=== PATIENT | female | born 1950 | race Caucasian/White ===

== ENCOUNTER 2017-07-31 11:24 | Outpatient (CLI) | payer MEDICARE, BC ==
[2017-07-31 18:26] LABS: BASOPHILS # (AUTO) 0.1 10^3/uL (0.0-0.1); BASOPHILS % (AUTO) 1.2 %; EOSINOPHILS # (AUTO) 0.2 10^3/uL (0.0-0.7); HCT - HEMATOCRIT 37.2 % (37.0-47.0); HGB - HEMOGLOBIN 12.4 g/dL (12.0-16.0); LYMPHOCYTES # (AUTO) 2.3 10^3/uL (1.5-3.5); LYMPHOCYTES % (AUTO) 31.1 %; MEAN CORPUSCULAR HEMOGLOBIN 31.5 pg (27.0-31.0); MEAN CORPUSCULAR HGB CONC 33.2 g/dL (32.0-36.0); MEAN CORPUSCULAR VOLUME 94.7 fL (81.0-99.0); MEAN PLATELET VOLUME 8.2 fL (7.9-10.8); MONOCYTES # (AUTO) 0.6 10^3/uL (0.0-1.0); MONOCYTES % (AUTO) 7.6 %; NEUTROPHILS # (AUTO) 4.4 10^3/uL (1.5-6.6); NEUTROPHILS % (AUTO) 58.1 %; RED BLOOD COUNT 3.93 10^6/uL (4.20-5.40); RED CELL DISTRIBUTION WIDTH 13.2 % (12.0-15.0); UNCORRECTED WHITE BLOOD COUNT 7.5 x10^3/uL; WHITE BLOOD COUNT 7.5 x10^3/uL (4.8-10.8)
[2017-07-31 18:52] LABS: ALBUMIN/GLOBULIN RATIO 1.3 (1.0-2.2); BILIRUBIN,TOTAL 0.6 mg/dL (0.2-1.0); BUN - BLOOD UREA NITROGEN 16 mg/dL (6-20); CALCIUM 9.5 mg/dL (8.5-10.3); CARBON DIOXIDE - CO2 30 mmol/L (21-32); CHLORIDE 99 mmol/L (101-111); CREATININE 0.7 mg/dL (0.4-1.0); GFR - MDRD 83 (>89); GLUCOSE 90 mg/dL (70-100); POTASSIUM 4.7 mmol/L (3.5-5.0); SODIUM 133 mmol/L (135-145); TOTAL PROTEIN 6.6 g/dL (6.7-8.2)
== END 2017-07-31 11:25 | disposition home or self-care (01) ==
LOC: LAB.F 11:24
PROVIDERS: ATTEND Internal Medicine Gastroenterology
DX: K51.90 Ulcerative colitis, unspecified, without complications (principal)
CPT/HCPCS: 36415; 80053; 85025; 85651; 86140

== ENCOUNTER 2017-08-15 09:02 | Outpatient (CLI) | payer MEDICARE, BC ==
[2017-08-15 18:16] LABS: CHOL/HDL RATIO 1.9 (<4.4); CHOLESTEROL 182 mg/dL; HDL CHOLESTEROL 97 mg/dL; LDL/HDL RATIO 0.8 (<4.4); TRIGLYCERIDES 42 mg/dL; VLDL CHOLESTEROL 8 mg/dL
== END 2017-08-15 09:03 | disposition home or self-care (01) ==
LOC: LAB.F 09:02
PROVIDERS: ATTEND Internal Medicine Gastroenterology
DX: K51.90 Ulcerative colitis, unspecified, without complications (principal); E78.89 Other lipoprotein metabolism disorders
CPT/HCPCS: 36415; 80061

== ENCOUNTER 2019-02-19 15:22 | Outpatient (CLI) | payer MEDICARE, BC ==
--- NOTE | 2019-02-20 08:06 | XRAY Report ---
Reason: MEDIAL MALLEOLUS PAIN X 2 MONTHS INCREASING Procedure Date: 02/19/2019 Accession Number: [id number] / [id number] Procedure: XR - Ankle 3 View RT CPT Code: FULL RESULT: EXAM: RIGHT ANKLE RADIOGRAPHY EXAM DATE: 02/19/2019 03:35 PM. CLINICAL HISTORY: MEDIAL MALLEOLUS PAIN X 2 MONTHS INCREASING. COMPARISON: None. TECHNIQUE: 3 views. FINDINGS: Bones: No acute finding. Negative for fracture. Moderately severe talocalcaneal osteoarthritis. Joints: Normal. No effusion. No subluxations. The ankle mortise is normally aligned. Soft Tissues: Normal. No soft tissue swelling. IMPRESSION: 1. No acute abnormality. 2. Moderately severe talocalcaneal joint osteoarthritis. RADIA
== END 2019-02-19 15:23 | disposition home or self-care (01) ==
LOC: DI 15:22
PROVIDERS: ATTEND Podiatrist
DX: M19.071 Primary osteoarthritis, right ankle and foot (principal)

== ENCOUNTER 2019-06-25 09:10 | Emergency (ER) | payer MEDICARE, BC ==
[2019-06-25] MEDS ORDERED: CHERRY SYRUP 10 ML UDC PO ONE (10:07)
[2019-06-25] MEDS ORDERED: LIDOCAINE 1% 2 ML VIAL MC ONE (10:07)
[2019-06-25] MEDS ORDERED: cefTRIAXone 1 GM VIAL IM STA (10:07)
[2019-06-25] MEDS ORDERED: DEXAMETHASONE 10 MG/ML VIAL PO STA (10:07)
--- NOTE | 2019-06-25 10:40 | ED Physician Documentation ---
History of Present Illness - Stated complaint Stated Complaint: LT ARM WASP STING - Chief complaint Chief Complaint: Wound - History obtained from History obtained from: Patient - History of Present Illness Timing: How many days ago (10) - Additonal information Additional information: 69-year-old female with a history of ulcerative colitis and a prior history of C. difficile colitis has been stung by a wasp 10 days ago and she had some initial localized swelling and now she has general swelling of her left forearm with a lymphangitic streak and increased pain this is been more dramatic over the past 2 days. Review of Systems Constitutional: reports: Chills, Fatigue. 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 HEENT: Other - Present Medications Home Medications: Ambulatory Orders Medication Instructions Recorded Confirmed Calcitonin,[place],Synthetic 3.7 ml NS 02/13/14 02/13/14 [Calcitonin-[place]] Clonazepam 0.25 mg PO 02/13/14 02/13/14 Estradiol [Jacklyn] 1 each TD 02/13/14 02/13/14 buPROPion [Wellbutrin Xl] 150 mg PO BID 02/13/14 02/13/14 Amox/Clav 875/125 [Augmentin] 1 each PO Q12H #14 tablet 06/25/19 - Allergies Allergies/Adverse Reactions: Allergies Allergy/AdvReac Type Severity Reaction Status Date / Time epinephrine AdvReac Unknown Unknown Verified 06/25/19 09:27 sumatriptan [From Imitrex] AdvReac Unknown Unknown Verified 06/25/19 09:27 sumatriptan succinate * AdvReac Unknown Unknown Verified 06/25/19 09:27 [From Imitrex] - Social History Does the pt smoke?: No Smoking Status: Never smoker Does the pt drink ETOH?: No Does the pt have substance abuse?: No - Immunizations Immunizations are current?: Yes - POLST Patient has POLST: No PD ED PE NORMAL - Vitals Vital signs reviewed: Yes (hypertensive mild ) - General General: Alert and oriented X 3, No acute distress, Well developed/nourished - HEENT HEENT: Atraumatic, PERRL, EOMI - Respiratory Respiratory: No respiratory distress - Derm Derm: Normal color, Warm and dry - Extremities Extremities: No deformity, Other (There is erythema and swelling to the left volar forearm in an area about [id number] with a lymphangitic streak starting. There is no area of flucutance or firmness. The distal n/v is intact. 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 Her erythema is marked with a surgical marker and she is given a dose of Rocephin and dexamethasone. We will place her on some Augmentin and expect resolution of her symptoms within the week. She is given caution on development of diarrhea and progression of symptoms. Departure - Departure Disposition: 01 Home, Self Care Clinical Impression: Cellulitis Qualifiers: Site of cellulitis: extremity Site of cellulitis of extremity: upper extremity Laterality: left Qualified Code(s): L03.114 - Cellulitis of left upper limb Condition: Stable Instructions: ED Infec Skin Cellulitis Follow-Up: Saniya Delgado MD [Primary Care Provider] - Prescriptions: Amox/Clav 875/125 [Augmentin] 1 each PO Q12H #14 tablet
[2019-06-25 11:47] VITALS: BP 132/61
== END 2019-06-25 11:58 | disposition home or self-care (01) ==
LOC: ED 09:10
DX: L03.114 Cellulitis of left upper limb (principal); T63.461A Toxic effect of venom of wasps, accidental (unintentional), initial encounter; X58.XXXA Exposure to other specified factors, initial encounter; Z87.19 Personal history of other diseases of the digestive system
CPT/HCPCS: 99282; 99284; A9270

== ENCOUNTER 2019-12-07 15:09 | Emergency (ER) | payer MEDICARE, BC ==
[2019-12-07 15:19] VITALS: BP 162/75
[2019-12-07 15:35] LABS: RAPID STREP SCREEN Negative (Negative)
--- NOTE | 2019-12-07 15:36 | ED Physician Documentation ---
PD HPI HEENT - Stated complaint Stated Complaint: HEAD/THROAT PAIN, COUGH - Chief complaint Chief Complaint: Heent - History obtained from History obtained from: Patient - History of Present Illness Timing - onset: Other (She is been sick for a month. She has a history of recurrent sinusitis and has a lot of sinus pressure which has been persistent over the last month and worse of the last 2 days with a fever to 101. She is a remote history of C. difficile. She also has a cough that is nonproductive. No shortness of breath.) Review of Systems Constitutional: reports: Fever, Chills Nose: reports: Rhinorrhea / runny nose, Congestion, Sinus pressure / pain Throat: reports: Sore throat Respiratory: reports: Cough. 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 HEENT: Other - Present Medications Home Medications: Ambulatory Orders Medication Instructions Recorded Confirmed Calcitonin,[place],Synthetic 3.7 ml NS 02/13/14 02/13/14 [Calcitonin-[place]] Clonazepam 0.25 mg PO 02/13/14 02/13/14 Estradiol [Jacklyn] 1 each TD 02/13/14 02/13/14 buPROPion [Wellbutrin Xl] 150 mg PO BID 02/13/14 02/13/14 Amox/Clav 875/125 [Augmentin] 1 each PO Q12H #14 tablet 06/25/19 Amox/Clav 875/125 [Augmentin] 1 each PO Q12H #20 tablet 12/07/19 Fluconazole [Diflucan] 150 mg PO ONCE PRN #1 tablet 12/07/19 - Allergies Allergies/Adverse Reactions: Allergies Allergy/AdvReac Type Severity Reaction Status Date / Time epinephrine AdvReac Unknown Unknown Verified 12/07/19 15:14 sumatriptan [From Imitrex] AdvReac Unknown Unknown Verified 12/07/19 15:14 sumatriptan succinate * AdvReac Unknown Unknown Verified 12/07/19 15:14 [From Imitrex] - Social History Does the pt smoke?: No Smoking Status: Former smoker Does the pt drink ETOH?: No Does the pt have substance abuse?: No - Immunizations Immunizations are current?: Yes - POLST Patient has POLST: No PD ED PE NORMAL - Vitals Vital signs reviewed: Yes - General General: Alert and oriented X 3, No acute distress - HEENT HEENT: PERRL, EOMI, Other (Nabeel over the maxillary sinuses, TMs are normal, mastoids are nontender. Neck is supple. Oropharynx is normal.) - Neck Neck: Supple, no meningeal sign, No bony TTP - Neuro Neuro: Alert and oriented X 3, Normal speech Results - Vitals Vitals: Vital Signs - 24 hr 12/07/19 15:14 Temperature 37 C Heart Rate 79 Respiratory 18 Rate Blood Pressure 162/75 H O2 Saturation 98 Oxygen O2 Source Room air - Labs Labs: Laboratory Tests 12/07/19 15:20 Group A Strep Rapid Negative PD MEDICAL DECISION MAKING - ED course ED course: She does fit IDSA criteria for antibiotic therapy for sinusitis and is prescribed Augmentin after discussion discussing the risks and benefits especially given the history of C. difficile, but she feels like she has tried conservative management long enough and wants to do some antibiotics. Departure - Departure Disposition: 01 Home, Self Care Clinical Impression: Sinusitis Qualifiers: Sinusitis location: maxillary Chronicity: acute Recurrence: recurrent Qualified Code(s): J01.01 - Acute recurrent maxillary sinusitis Condition: Good Record reviewed to determine appropriate education?: Yes Instructions: ED Sinusitis Abx Tx Prescriptions: Amox/Clav 875/125 [Augmentin] 1 each PO Q12H #20 tablet Fluconazole [Diflucan] 150 mg PO ONCE PRN #1 tablet PRN Reason: yeast infection Comments: I sent the prescriptions electronically to [facility] in [place]. Call your doctor to arrange a follow-up appointment, make the next available appointment. In the interim, return anytime if worse or if new symptoms develop. Discharge Date/Time: 12/07/19 15:42
== END 2019-12-07 15:42 | disposition home or self-care (01) ==
LOC: ED 15:09
DX: J01.01 Acute recurrent maxillary sinusitis (principal); Z87.891 Personal history of nicotine dependence
CPT/HCPCS: 87070; 87430; 99283; 99284

== ENCOUNTER 2020-11-02 10:26 | Emergency (ER) | payer MEDICARE, BC ==
--- NOTE | 2020-11-02 10:43 | ED Physician Documentation ---
PD HPI ABD PAIN - Stated complaint Stated Complaint: ABD PX - Chief complaint Chief Complaint: Abd Pain - History obtained from History obtained from: Patient - History of Present Illness Timing - onset: How many days ago (3-4) Timing - duration: Days (3-4) Timing - details: Gradual onset, Still present, Waxing and waning Quality: Cramping, Aching, Pain (onset of cramping lower abd pain after feeling constipated s/p opioid use for recent ankle injury. Stopped the pain meds and taking Docusate with BMs yesterday and today. But still having RLQ pain the past couple of days, worse today. Feeling similar to diverticulitis.) Location: RLQ, Suprapubic Radiation: No: Lower back Improved by: BM Worsened by: Moving, Palpation. No: Breathing Associated symptoms: Nausea, Constipation, Melena. No: Fever, Vomiting, Diarrhea, Hematochezia, Dysuria Similar symptoms before: Diagnosis (diverticulitis and also IBD.) Recently seen: Not recently seen Review of Systems Constitutional: reports: Myalgias. denies: Fever, Chills Nose: denies: Rhinorrhea / runny nose, Congestion Throat: denies: Sore throat Respiratory: denies: Cough GI: reports: Abdominal Pain, Nausea, Constipation. 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 HEENT: Other - Present Medications Home Medications: Ambulatory Orders Medication Instructions Recorded Confirmed Calcitonin,[employer],Synthetic 3.7 ml NS 02/13/14 02/13/14 [Calcitonin-[employer]] Clonazepam 0.25 mg PO 02/13/14 02/13/14 buPROPion [Wellbutrin Xl] 150 mg PO BID 02/13/14 02/13/14 estradioL [Jacklyn] 1 each TD 02/13/14 02/13/14 Amox/Clav 875/125 [Augmentin] 1 each PO Q12H #14 tablet 06/25/19 Amox/Clav 875/125 [Augmentin] 1 each PO Q12H #20 tablet 12/07/19 Fluconazole [Diflucan] 150 mg PO ONCE PRN #1 tablet 12/07/19 Amox/Clav 875/125 [Augmentin] 1 each PO Q12H #10 tablet 11/02/20 Ondansetron Odt [Zofran] 4 mg TL Q6H PRN #10 tablet 11/02/20 - Allergies Allergies/Adverse Reactions: Allergies Allergy/AdvReac Type Severity Reaction Status Date / Time sumatriptan [From Imitrex] Allergy Unknown Anaphylaxis Verified 11/02/20 10:30 sumatriptan succinate * Allergy Unknown Anaphylaxis Verified 11/02/20 10:30 [From Imitrex] epinephrine AdvReac Unknown Unknown Verified 11/02/20 10:30 - Social History Does the pt smoke?: No Smoking Status: Former smoker Does the pt drink ETOH?: No Does the pt have substance abuse?: No - Immunizations Immunizations are current?: Yes - POLST Patient has POLST: No PD ED PE NORMAL - Vitals Vital signs reviewed: Yes - General General: Alert and oriented X 3, No acute distress, Well developed/nourished - HEENT HEENT: Moist mucous membranes - Neck Neck: Supple, no meningeal sign - Cardiac Cardiac: RRR, No murmur - Respiratory Respiratory: Clear bilaterally - Abdomen Abdomen: Normal bowel sounds, Soft, Non distended, No organomegaly, Other (tender with some guarding mid and right lower abd. Some local guarding. No percussion tenderness. ) - Female Female : Deferred - Rectal Rectal: Deferred - Back Back: No CVA TTP - Derm Derm: Normal color, Warm and dry - Extremities Extremities: Normal ROM s pain, No edema, No calf tenderness / cord - Neuro Neuro: Alert and oriented X 3, No motor deficit, Normal speech Eye Opening: Spontaneous Motor: Obeys Commands Verbal: Oriented GCS Score: 15 Results - Vitals Vitals: Vital Signs - 24 hr 11/02/20 11/02/20 11/02/20 10:30 12:15 14:00 Temperature 36.8 C 37.0 C 37.0 C Heart Rate 86 75 74 Respiratory 18 12 14 Rate Blood Pressure 130/62 133/79 H 130/80 O2 Saturation 100 100 100 Oxygen O2 Source Room air - Labs Labs: Laboratory Tests 11/02/20 11/02/20 11/02/20 10:51 10:51 11:24 WBC 11.1 H RBC 4.11 L Hgb 13.0 Hct 39.1 MCV 95.1 MCH 31.6 H MCHC 33.2 RDW 12.9 Plt Count 324 MPV 9.7 Neut # (Auto) 8.2 H Lymph # (Auto) 1.6 [place] # (Auto) 1.1 H Eos # (Auto) 0.0 Baso # (Auto) 0.0 Absolute Nucleated RBC 0.00 Nucleated RBC % 0.0 Sodium 133 L Potassium 4.7 Chloride 96 L Carbon Dioxide 27 Anion Gap 10.0 BUN 10 Creatinine 0.6 Estimated GFR (MDRD) 98 Glucose 118 H Calcium 9.1 Total Bilirubin 1.0 AST 30 ALT 31 Alkaline Phosphatase 69 Total Protein 7.7 Albumin 3.6 Globulin 4.1 Albumin/Globulin Ratio 0.9 L Lipase 29 Urine Color DARK YELLOW Urine Clarity CLEAR Urine pH 6.0 Ur Specific [place] 1.025 Urine Protein NEGATIVE Urine Glucose (UA) NEGATIVE Urine Ketones TRACE Urine Occult Blood NEGATIVE Urine Nitrite NEGATIVE Urine Bilirubin NEGATIVE Urine Urobilinogen 0.2 (NORMAL) Ur Leukocyte Esterase TRACE H Urine RBC 0-5 Urine WBC 0-3 Ur Squamous Epith Cells MOD Squamous H Urine Crystals 6-10 Calcium Oxalate Urine Bacteria Moderate H Ur Microscopic Review INDICATED Urine Culture Comments NOT INDICATED - Rads (name of study) abd CT Radiology: Prelim report reviewed (lots of stool. Some cecal wall thickening, consider inflammatory vs infectious. Appendix not seem but no secondary signs of appendicitis. Diverticula. ), See rad report PD MEDICAL DECISION MAKING - ED course Complexity details: reviewed results (cecal wall thickening. Consider infectiou s. Still seems lots of stool on exam. ), re-evaluated patient (pain much improved and no guarding on exam after some meds of just Toradol. ), considered differential, d/w patient Departure - Departure Disposition: 01 Home, Self Care Clinical Impression: Right lower quadrant abdominal pain, Acute colitis Constipation Qualifiers: Constipation type: unspecified constipation type Qualified Code(s): K59.00 - Constipation, unspecified Condition: Stable Instructions: ED Colitis Ulcerative Follow-Up: Saniya Delgado MD [Primary Care Provider] - Prescriptions: Amox/Clav 875/125 [Augmentin] 1 each PO Q12H #10 tablet Ondansetron Odt [Zofran] 4 mg TL Q6H PRN #10 tablet PRN Reason: Nausea / Vomiting Comments: You still have a generous amount of stool in your intestines so continue your Colace and either double hit or combine with MiraLAX as a stool softener. The CT exam reading comments on some thickening of the cecal wall that could be inflammatory or infectious. Therefore treat with ibuprofen 40 mg 2-3 times a day for inflammation and Augmentin twice daily as directed for potential infection. Be sure to take good amount of probiotics during this. Add Tylenol if needed for pains. Ondnsatron as needed for nausea. Stay well-hydrated. Recheck if not improved well over the next couple of days. Discharge Date/Time: 11/02/20 14:11
[2020-11-02 11:05] LABS: BASOPHILS % (AUTO) 0.4 %; EOSINOPHILS % (AUTO) 0.2 %; HCT - HEMATOCRIT 39.1 % (37.0-47.0); LYMPHOCYTES # (AUTO) 1.6 10^3/uL (1.5-3.5); LYMPHOCYTES % (AUTO) 14.6 %; MEAN CORPUSCULAR HEMOGLOBIN 31.6 pg (27.0-31.0); MEAN CORPUSCULAR HGB CONC 33.2 g/dL (32.0-36.0); MEAN CORPUSCULAR VOLUME 95.1 fL (81.0-99.0); MEAN PLATELET VOLUME 9.7 fL (7.9-10.8); MONOCYTES # (AUTO) 1.1 10^3/uL (0.0-1.0); NEUTROPHILS # (AUTO) 8.2 10^3/uL (1.5-6.6); NEUTROPHILS % (AUTO) 74.3 %; PLT - PLATELET COUNT 324 10^3/uL (130-450); RED BLOOD COUNT 4.11 10^6/uL (4.20-5.40); RED CELL DISTRIBUTION WIDTH 12.9 % (12.0-15.0); WHITE BLOOD COUNT 11.1 x10^3/uL (4.8-10.8)
[2020-11-02 11:15] LABS: ALBUMIN 3.6 g/dL (3.2-5.5); ALBUMIN/GLOBULIN RATIO 0.9 (1.0-2.2); CALCIUM 9.1 mg/dL (8.5-10.3); CREATININE 0.6 mg/dL (0.4-1.0); POTASSIUM 4.7 mmol/L (3.5-5.0); TOTAL PROTEIN 7.7 g/dL (6.7-8.2)
[2020-11-02] MEDS ORDERED: SODIUM CHLORIDE 0.9% 1,000 ML IV STA (11:20)
[2020-11-02] MEDS ORDERED: KETOROLAC 30 MG/ML VIAL IVP STA (11:20)
[2020-11-02 11:32] LABS: GLUCOSE, URINE (UA) NEGATIVE (NEGATIVE); KETONES,URINE (UA) TRACE mg/dL (NEGATIVE); LEUKOCYTE ESTERASE, URINE TRACE (NEGATIVE); NITRITE,URINE NEGATIVE (NEGATIVE); OCCULT BLOOD,URINE NEGATIVE (NEGATIVE); PROTEIN,URINE NEGATIVE (NEGATIVE); UROBILINOGEN,URINE 0.2 (NORMAL) E.U./dL (NORMAL)
[2020-11-02] MEDS ORDERED: IOVERSOL 320 100 ML VIAL IVP ONE ×2 (11:33→14:44)
[2020-11-02 11:37] LABS: CLARITY,URINE CLEAR (CLEAR)
[2020-11-02 11:44] LABS: BILIRUBIN,URINE NEGATIVE (NEGATIVE); ICTOTEST,URINE NEGATIVE
[2020-11-02 12:07] LABS: RBC,URINE 0-5 /HPF (0-5); SQUAMOUS EPITHELIAL CELL,UR MOD Squamous (<= Few); WBC,URINE 0-3 /HPF (0-5)
[2020-11-02 12:08] LABS: BACTERIA,URINE Moderate /HPF (None Seen); CRYSTALS,URINE 6-10 Calcium Oxalate /LPF
--- NOTE | 2020-11-02 12:55 | CT Report ---
PROCEDURE: Abdomen/Pelvis W INDICATIONS: RLQ abd pain for 3 days, worsening. History of ulcerative colitis CONTRAST: IV CONTRAST: Optiray 320 ml: 100 PO CONTRAST: *NO PO CONTRAST TECHNIQUE: After the administration of intravenous contrast, 5 mm thick sections acquired from the diaphragms to the symphysis. 5 mm thick coronal and sagittal reformats were acquired. For radiation dose reducti on, the following was used: automated exposure control, adjustment of mA and/or kV according to cheryl ent size. COMPARISON: None. FINDINGS: Image quality: Excellent. ABDOMEN: Lung bases: Lung bases are clear. Heart size is normal. Trace pericardial effusion. Solid organs: Liver and spleen are normal in size and enhancement. Gallbladder is normal. Biliary system is non dilated. Pancreas enhances normally. No adrenal nodules. Kidneys demonstrate normal size and enhancement, without hydronephrosis. Peritoneum and bowel: Cecum appears concentrically thickened. There are postsurgical changes in rect um. Appendix is not identified. No stranding in the right lower quadrant. Bowel loops demonstrate nor mal caliber. No free fluid or air. Nodes and vessels: No retroperitoneal or mesenteric adenopathy by size criteria. Aorta and inferior vena cava are normal in size. Miscellaneous: No ventral hernias. PELVIS: Genitourinary: Bladder is collapsed. Miscellaneous: No inguinal hernias or adenopathy. Bones: No suspicious bony lesions. No vertebral body compression fractures. Degenerative changes i n lumbar spine. IMPRESSION: 1. Cecum appears thickened. Differential diagnoses include infectious etiology versus inflammatory oscar wel disease. 2. Appendix is not visualized. No secondary signs for acute appendicitis. 3. Post surgical changes in rectum. Reviewed by: Sujatha Padgett MD on 11/02/2020 12:54 PM PST Approved by: Sujatha Padgett MD on 11/02/2020 12:54 PM PST Station ID: [id number]
[2020-11-02 14:11] VITALS: BP 130/80
== END 2020-11-02 14:11 | disposition home or self-care (01) ==
LOC: ED 10:26
DX: K52.9 Noninfective gastroenteritis and colitis, unspecified (principal); K59.00 Constipation, unspecified; Z87.19 Personal history of other diseases of the digestive system; Z87.891 Personal history of nicotine dependence
CPT/HCPCS: 36415; 74177; 80053; 81001; 83690; 85025; 96361; 96374; 99284; Q9967; 81003; 87086

== ENCOUNTER 2021-11-23 12:54 | Emergency (ER) | payer MEDICARE, BC ==
[2021-11-23 13:43] VITALS: BP 140/72
--- NOTE | 2021-11-23 14:21 | CT Report ---
PROCEDURE: HEAD WO INDICATIONS: GLF; facial pain; concussion; tooth pain TECHNIQUE: Noncontrast 4.5 mm thick angled axial sections acquired from the foramen magnum to the vertex. For r adiation dose reduction, the following was used: automated exposure control, adjustment of mA and/or kV according to patient size. COMPARISON: None. FINDINGS: Image quality: Excellent. CSF spaces: Basal cisterns are patent. No extra-axial fluid collections. Ventricles are normal in size and shape. Brain: No midline shift. No intracranial masses or hemorrhage. Fajardo-white matter interface is norm al. Skull and face: Calvarium and visualized facial bones are intact, without suspicious lesions. Sinuses: Partially visualized paranasal sinuses and mastoid air cells are clear. IMPRESSION: No acute intracranial abnormality. Reviewed by: Rolly William MD on 11/23/2021 2:20 PM PST Approved by: Rolly William MD on 11/23/2021 2:[address] [facility] Station ID: [id number]
--- NOTE | 2021-11-23 14:23 | CT Report ---
PROCEDURE: CERVICAL SPINE WO INDICATIONS: GLF TECHNIQUE: Noncontrast 3 mm thick sections acquired from the skull base to the T4 level. Sagittal and coronal r eformats were then constructed. For radiation dose reduction, the following was used: automated exp osure control, adjustment of mA and/or kV according to patient size. COMPARISON: None. FINDINGS: Image quality: Excellent. Bones: No fracture demonstrated. Intervertebral disc spaces are congruent with no listhesis, dislocat ion, or subluxation demonstrated. Facet joint spaces demonstrate no asymmetric widening. Posterior el ements unremarkable. Soft tissues: Prevertebral soft tissues are normal in thickness. No paravertebral hematomas. No ap ical pneumothoraces. IMPRESSION: No CT evidence of acute traumatic cervical spine injury. Reviewed by: Rolly William MD on 11/23/2021 2:22 PM PST Approved by: Rolly William MD on 11/23/2021 2:22 PM PST Station ID: [id number]
--- NOTE | 2021-11-23 14:25 | CT Report ---
PROCEDURE: MAXILLOFACIAL WO INDICATIONS: glf; eval for fractures; tooth and jaw hurts TECHNIQUE: Noncontrast 1.5 mm thick axial images acquired from the mandible through the frontal sinuses, with co aleida and sagittal reformatting. For radiation dose reduction, the following was used: automated ex posure control, adjustment of mA and/or kV according to patient size. COMPARISON: None. FINDINGS: There are postsurgical changes of bilateral maxillary sinus medial antrostomies, uncinectomies, and a nterior ethmoid air cell resection/fenestration. Mild mucosal thickening in the left maxillary sinus. No paranasal sinus mucosal thickening or fluid level otherwise. Reactive bony thickening in the maxi llary sinuses, left greater than right, indicative of chronic/recurrent sinusitis. There is no facial bone fracture identified. No acute soft tissue finding. No convincing evidence of carious disease or significant periapical lucency, evaluation limited by streak artifact from multifo marcos dental amalgam. IMPRESSION: No acute finding. Reviewed by: Rolly William MD on 11/23/2021 2:24 PM PST Approved by: Rolly William MD on 11/23/2021 2:24 PM PST Station ID: [id number]
--- NOTE | 2021-11-23 14:44 | XRAY Report ---
PROCEDURE: Elbow 3 View RT INDICATIONS: Trauma TECHNIQUE: 3 views of the elbow were acquired. COMPARISON: None. FINDINGS: Bones: No fractures or dislocations. No suspicious bony lesions. Soft tissues: No elbow joint effusion. No suspicious soft tissue calcifications. IMPRESSION: No acute osseous abnormality. Reviewed by: Konrad Peter MD on 11/23/2021 2:43 PM PST Approved by: Konrad Peter MD on 11/23/2021 2:43 PM PST Station ID: [id number]
--- NOTE | 2021-11-23 14:47 | XRAY Report ---
PROCEDURE: Wrist 4 View RT INDICATIONS: Trauma TECHNIQUE: 4 views of the wrist were acquired. COMPARISON: None. FINDINGS: Bones: No fractures or dislocations. No suspicious bony lesions. Severe degenerative change at the first CMC joint and trapezium scaphoid joint. Scaphoid view: Intact. Soft tissues: No suspicious soft tissue calcifications. IMPRESSION: No acute osseous abnormality. Advanced degenerative change. Reviewed by: Konrad Peter MD on 11/23/2021 2:45 PM PST Approved by: Konrad Peter MD on 11/23/2021 2:45 PM PST Station ID: [id number]
--- NOTE | 2021-11-23 14:59 | ED Physician Documentation ---
History of Present Illness - Stated complaint Stated Complaint: PT FELL FACE FIRST RT ARM PX - Chief complaint Chief Complaint: Trauma Hd/Nk - Additonal information Additional information: 71-year-old female presents emergency department for evaluation of acute facial and right elbow pain. She was walking her dog tripped forward falling directly onto concrete. She did not lose consciousness but initially had some mild amnesia to the events directly after they occurred. She is not anticoagulated. She presents to the ER with a laceration above her right eyebrow as well as pain in the elbow. Ambulatory without assistance. 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 : None HEENT: Chronic sinusitis Psych: None Musculoskeletal: None Derm: None - Past Surgical History Past Surgical History: Yes General: Bowel surgery /SECTION SUPERVISOR: Hysterectomy HEENT: Other - Present Medications Home Medications: Ambulatory Orders Medication Instructions Recorded Confirmed Calcitonin,[place],Synthetic 3.7 ml NS 02/13/14 02/13/14 [Calcitonin-[place]] buPROPion [Wellbutrin Xl] 150 mg PO BID 02/13/14 02/13/14 clonazePAM [Clonazepam] 0.25 mg PO 02/13/14 02/13/14 estradioL [Jacklyn] 1 each TD 02/13/14 02/13/14 Amox/Clav 875/125 [Augmentin] 1 each PO Q12H #14 tablet 06/25/19 Amox/Clav 875/125 [Augmentin] 1 each PO Q12H #20 tablet 12/07/19 Fluconazole [Diflucan] 150 mg PO ONCE PRN #1 tablet 12/07/19 Amox/Clav 875/125 [Augmentin] 1 each PO Q12H #10 tablet 11/02/20 Ondansetron Odt [Zofran] 4 mg TL Q6H PRN #10 tablet 11/02/20 HYDROcod/ACETAM 5/325 [Edgewood 5/325] 1 tablet PO BID PRN #5 tablet 11/23/21 - Allergies Allergies/Adverse Reactions: Allergies Allergy/AdvReac Type Severity Reaction Status Date / Time sumatriptan [From Imitrex] Allergy Unknown Anaphylaxis Verified 11/23/21 13:32 sumatriptan succinate * Allergy Unknown Anaphylaxis Verified 11/23/21 13:32 [From Imitrex] epinephrine AdvReac Unknown Unknown Verified 11/23/21 13:32 - Social History Does the pt smoke?: No Smoking Status: Former smoker Does the pt drink ETOH?: No Does the pt have substance abuse?: No - Immunizations Immunizations are current?: Yes - POLST Patient has POLST: No PD ED PE EXPANDED - General General: Alert, No acute distress, Well developed/nourished - HEENT HEENT: Head injury, PERRL, Ears normal, Moist mucous membranes, Pharynx normal, Other (0.25 cm laceration above the right eyebrow. Not amenable to primary closure.). No: Right frontal sinus TTP, Left frontal sinus TTP, Dental trauma (Swelling and ecchymosis to both the upper and lower lip without laceration.) - Neck Neck: Supple w/out meningeal sx. No: Adenopathy - Cardiac Cardiac: Regular Rate, Radial strong equal, Pedal strong equal, Cap refill < 2 sec. No: Murmur Present - Respiratory Respiratory: Clear to ausultation adriel. No: Distress, Labored - Abdomen Abdomen: Normal Bowel sounds. No: Tender to palpation - Derm Derm: Laceration(s) (0.25 cm laceration through the right eyebrow. Abrasion and ecchymosis to upper and lower lips.) - Extremities Extremities: Right elbow (No swelling or ecchymosis. Tenderness of the proximal ulna and radius with any movement.Distal radial pulse. Normal grasp and sensation distally.) - Neuro Neuro: Alert and Oriented X 3, CNII-XII intact, Normal gait, Normal finger nose, Normal speech - GCS Eye Opening: Spontaneous Motor: Obeys Commands Verbal: Oriented Total: 15 Results - Vitals Vitals: Vital Signs - 24 hr 11/23/21 11/23/21 13:25 13:41 Temperature 36.3 C L Heart Rate 74 73 Respiratory 16 17 Rate Blood Pressure 145/79 H 140/72 H O2 Saturation 100 100 Oxygen O2 Source Room air - Rads (name of study) right wrist Radiology: Final report received (Chronic degenerative changes. No acute fracture or dislocation.) right elbow Radiology: Final report received (No acute fracture or dislocation) cervical spine CT Radiology: Final report received CT head Radiology: Final report received (No acute intracranial process) max Fa CT Radiology: Final report received (No acute process.) PD MEDICAL DECISION MAKING - ED course Complexity details: reviewed results, re-evaluated patient, considered differential, d/w patient ED course: 71-year-old female presents emergency department for evaluation of facial contusions after ground-level fall at which she was walking and tripped falling forward striking her face on the hard ground. She is somewhat amnesic to the events directly after the fall but has no obvious focal neurodeficits. She does have a superficial laceration through her right eyebrow measuring about 0.25 cm. Not amenable to primary closure. She does also have obvious contusions to her lips. CT maxillofacial series did not show any obvious fractures. Neither did a CT of the head or neck. We will intracranial bruising or bleeding noted. Of note patient had significant tenderness in her right elbow with any pronation or supination. There was no obvious contusion swelling or deformity and the x- ray was negative. However given the significant pain with any minimal movement patient was placed in a long-arm posterior splint and given a sling. She is advised to have this extremity reimaged in about 1 week. Prescription for a limited amount of hydrocodone is being sent to the pharmacy [facility] in [place]. Emergent return precautions are discussed for Severe headache, facial droop slurred speech, or any other emergent concerns. Departure - Departure Disposition: 01 Home, Self Care Clinical Impression: Elbow pain, right Contusion of face Qualifiers: Encounter type: initial encounter Qualified Code(s): S00.83XA - Contusion of other part of head, initial encounter Concussion Qualifiers: Encounter type: initial encounter Loss of consciousness presence/duration: without LOC Qualified Code(s): S06.0X0A - Concussion without loss of consciousness, initial encounter Condition: Stable Record reviewed to determine appropriate education?: Yes Instructions: ED Contusion Upper Extr Ch, ED Head Injury Closed Ch Prescriptions: HYDROcod/ACETAM 5/325 [Edgewood 5/325] 1 tablet PO BID PRN #5 tablet PRN Reason: Pain Comments: Negrito you were seen in the emergency department today after a ground-level fall in which she struck her face on the ground. Having some memory changes right after the fall is common and is a sign of a concussion. The CT of your head, the CT of the bones of your face and the CT of your neck do not show any broken bones bruising or bleeding. It is important that you get plenty of rest over the next few days. Stay well- hydrated. I expect that you are going to be very sore and hurt over the next 24 to 48 hours. Saniya recommend that you take Tylenol or ibuprofen for discomfort. For severe pain I have prescribed 5 Edgewood tablets. This has been sent to the [facility] in [place]. The x-ray of your right elbow and wrist did not show any broken bones. However your elbow is tender enough with any movement that I feel you would do well to have it splinted for the next week. I encourage you to follow-up with your primary care doctor or any walk-in clinic in about 1 week's time to have the elbow reevaluated and reimaged. Hopefully at that time pain is better and you are able to have the splint removed. If not you may need to be referred to orthopedics for follow-up. If any point you find that your splint is too tight, it gets wet, you lose sensation in your fingers or they become discolored then you are to return to the ER for repeat evaluation. Because you likely have a concussion it is important that somebody stay with you over the next 2 to 3 days. If at any point you develop sudden severe headache, have facial droop, slurred speech or sudden weakness in your arm or leg you are to return immediately to the ER for second evaluation I am prescribing a short course of narcotic pain medication for you. These are potentially dangerous and addictive medications that should be used carefully. These medications may constipate you. Take an tmbv-spr-[id number] stool softener (docusate) twice daily with plenty of water while taking these medications. If you go 24 hours without a bowel movement, take [id number]-[id number] miralax, per package instructions. Do not drink or drive while taking these medications. If you received narcotic or sedating medications while in the emergency department, do not drive for 24 hours. Store this medication in a safe, secure place and out of reach of children. It is a violation of federal law to give or sell this medication to another person or to use in a manner other than prescribed. The ED will not refill narcotic prescriptions, including prescriptions lost or stolen. To dispose of unwanted medications: 1. [facility] at [address] in [place] has a medication drop box. They accept prescription medications (in pill form) Sunday through Sunday 9:00 a.m. to 5:00 p.m. 2. The [facility] [employer] accepts prescription medications (in pill form only) for disposal year round. Call for more information. 3. Contact the [facility] for the next [facility] sponsored prescription drug collection event. , [phone], or [phone]; Note that many narcotic pain relievers also contain Tylenol/acetaminophen. Please ensure that your total dose of acetaminophen from all sources does not exceed 3 g (3000 mg) per day.
[2021-11-23] MEDS ORDERED: HYDROmorphone 1 MG/ML CARPUJECT IM STA (15:27)
[2021-11-23] MEDS ORDERED: BACITRACIN ZINC OINT 1 PACKET TOP STA (15:34)
== END 2021-11-23 17:03 | disposition home or self-care (01) ==
LOC: ED 12:54
DX: S00.83XA Contusion of other part of head, initial encounter (principal); S00.531A Contusion of lip, initial encounter; S06.0X0A Concussion without loss of consciousness, initial encounter; W01.198A Fall on same level from slipping, tripping and stumbling with subsequent striking against other object, initial encounter; Y93.01 Activity, walking, marching and hiking; Z87.891 Personal history of nicotine dependence
CPT/HCPCS: 29105; 70450; 70486; 72125; 73080; 73110; 96372; 99283; 99284; A9270; J1170

== ENCOUNTER 2022-03-06 11:14 | Outpatient (CLI) | payer MEDICARE, BC | END 2022-03-06 11:15 | disposition home or self-care (01) | LOC: LAB.S 11:14 | DX: Z00.00 Encounter for general adult medical examination without abnormal findings (principal); F33.1 Major depressive disorder, recurrent, moderate; F41.9 Anxiety disorder, unspecified; Z53.9 Procedure and treatment not carried out, unspecified reason ==

== ENCOUNTER 2024-04-14 09:50 | Emergency (ER) | payer MEDICARE, BC ==
[2024-04-14 10:54] LABS: BILIRUBIN,URINE NEGATIVE (NEGATIVE); GLUCOSE, URINE (UA) NEGATIVE (NEGATIVE); KETONES,URINE (UA) 15 mg/dL (NEGATIVE); LEUKOCYTE ESTERASE, URINE NEGATIVE (NEGATIVE); NITRITE,URINE NEGATIVE (NEGATIVE); OCCULT BLOOD,URINE TRACE-INTA (NEGATIVE); PROTEIN,URINE NEGATIVE (NEGATIVE); UROBILINOGEN,URINE 0.2 (NORMAL) E.U./dL (NORMAL)
[2024-04-14 10:55] LABS: CLARITY,URINE CLEAR (CLEAR)
[2024-04-14 10:56] LABS: BASOPHILS # (AUTO) 0.1 10^3/uL (0.0-0.1); BASOPHILS % (AUTO) 0.5 %; EOSINOPHILS # (AUTO) 0.2 10^3/uL (0.0-0.7); EOSINOPHILS % (AUTO) 1.4 %; HCT - HEMATOCRIT 44.1 % (37.0-47.0); HGB - HEMOGLOBIN 14.5 g/dL (12.0-16.0); LYMPHOCYTES # (AUTO) 1.8 10^3/uL (1.5-3.5); LYMPHOCYTES % (AUTO) 12.5 %; MEAN CORPUSCULAR HEMOGLOBIN 30.9 pg (27.0-31.0); MEAN CORPUSCULAR HGB CONC 32.9 g/dL (32.0-36.0); MEAN PLATELET VOLUME 9.5 fL (7.9-10.8); MONOCYTES # (AUTO) 0.8 10^3/uL (0.0-1.0); MONOCYTES % (AUTO) 5.9 %; NEUTROPHILS # (AUTO) 11.2 10^3/uL (1.5-6.6); NEUTROPHILS % (AUTO) 79.4 %; PLT - PLATELET COUNT 272 10^3/uL (130-450); RED BLOOD COUNT 4.69 10^6/uL (4.20-5.40); RED CELL DISTRIBUTION WIDTH 13.4 % (12.0-15.0); WHITE BLOOD COUNT 14.1 x10^3/uL (4.8-10.8)
[2024-04-14 11:26] LABS: ALBUMIN 4.1 g/dL (3.2-5.5); ALBUMIN/GLOBULIN RATIO 0.9 (1.0-2.2); BILIRUBIN,TOTAL 0.5 mg/dL (0.2-1.0); CALCIUM 9.6 mg/dL (8.5-10.3); CREATININE 0.7 mg/dL (0.6-1.3); POTASSIUM 3.9 mmol/L (3.5-4.5); TOTAL PROTEIN 8.5 g/dL (6.4-8.9)
--- NOTE | 2024-04-14 11:39 | ED Physician Documentation ---
PD HPI ABD PAIN - Stated complaint Stated Complaint: LOW ABD PX,WEAKNESS - Chief complaint Chief Complaint: Abd Pain - History obtained from History obtained from: Patient - Additional information Additional information: This is a malu 74-year-old woman with history of partial colectomy and ulcerative colitis. That is her only abdominal surgery and it was about 10 years ago. She presents with 3 days of severe lower abdominal pain especially on the right. She has not had an appendix removed. She had a low-grade fever with this and was nauseous at the outset, no longer. She had diarrhea at the outset but now feels empty and dehydrated. 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: Hysterectomy HEENT: Other - Present Medications Home Medications: Ambulatory Orders Medication Instructions Recorded Confirmed clonazePAM [Clonazepam] 0.25 mg PO DAILY 02/13/14 04/14/24 estradioL [Jacklyn] 1 each TD DAILY 02/13/14 04/14/24 Amox/Clav 875/125 [Augmentin] 1 each PO Q12H #20 tablet 04/14/24 Ketorolac [Toradol] 10 mg PO Q6H PRN #12 tablet 04/14/24 predniSONE [Deltasone] 20 mg PO [id number] #21 tab 04/14/24 - Allergies Allergies/Adverse Reactions: Allergies Allergy/AdvReac Type Severity Reaction Status Date / Time sumatriptan [From Imitrex] Allergy Unknown Anaphylaxis Verified 04/14/24 10:25 sumatriptan succinate * Allergy Unknown Anaphylaxis Verified 04/14/24 10:25 [From Imitrex] epinephrine AdvReac Unknown Unknown Verified 04/14/24 10:25 - Social History Does the pt smoke?: No Smoking Status: Never smoker Does the pt drink ETOH?: No Does the pt have substance abuse?: No - Immunizations Immunizations are current?: Yes - POLST Patient has POLST: No PD ED PE NORMAL - Vitals Vital signs reviewed: Yes - General General: Alert and oriented X 3, Other (She is a thin well-appearing female who appears somewhat younger than stated age.) - Cardiac Cardiac: RRR, No murmur - Respiratory Respiratory: No respiratory distress, Clear bilaterally - Abdomen Abdomen: Other (Slightly diminished bowel sounds, well-healed laparoscopic surgical scars. Moderate tenderness in the right lower quadrant without surgical signs.) - Back Back: No CVA TTP, No spinal TTP - Derm Derm: Normal color, Warm and dry - Neuro Neuro: Alert and oriented X 3, Normal speech Results - Vitals Vitals: Vital Signs - 24 hr 04/14/24 10:25 Temperature 36.2 C L Heart Rate 80 Respiratory 18 Rate Blood Pressure 149/76 H O2 Saturation 100 Oxygen O2 Source Room air - Labs Labs: Laboratory Tests 04/14/24 04/14/24 04/14/24 10:45 10:48 10:48 WBC 14.1 H RBC 4.69 Hgb 14.5 Hct 44.1 MCV 94.0 MCH 30.9 MCHC 32.9 RDW 13.4 Plt Count 272 MPV 9.5 Neut # (Auto) 11.2 H Lymph # (Auto) 1.8 [place] # (Auto) 0.8 Eos # (Auto) 0.2 Baso # (Auto) 0.1 Absolute Nucleated RBC 0.00 Nucleated RBC % 0.0 Sodium 133 L Potassium 3.9 Chloride 98 L Carbon Dioxide 30 Anion Gap 5.0 L BUN 10 Creatinine 0.7 Estimated GFR (MDRD) 81 L Glucose 103 Calcium 9.6 Total Bilirubin 0.5 AST 24 ALT 17 Alkaline Phosphatase 64 Total Protein 8.5 Albumin 4.1 Globulin 4.4 H Albumin/Globulin Ratio 0.9 L Lipase 27 Urine Color YELLOW Urine Clarity CLEAR Urine pH 6.0 Ur Specific Kimper 1.020 Urine Protein NEGATIVE Urine Glucose (UA) NEGATIVE Urine Ketones 15 H Urine Occult Blood TRACE-INTA Urine Nitrite NEGATIVE Urine Bilirubin NEGATIVE Urine Urobilinogen 0.2 (NORMAL) Ur Leukocyte Esterase NEGATIVE Ur Microscopic Review NOT INDICATED Urine Culture Comments NOT INDICATED - Rads (name of study) CT abdomen pelvis with impressive colonic changes. Relevant Findings:: Final report received, EMP independent interpretation of test PD Medical Decision Making - ED course ED course: She presents with lower abdominal pain, appendicitis and diverticulitis lead to the differential. CBC notable for leukocytosis at 14,000. CMP generally unremarkable save for mild hyponatremia and her urinalysis has ketones, both of these findings could be due to moderate dehydration. She is administered IV fluids and Toradol and a CT is ordered. Given her history, lack of pain out of proportion to exam, and relatively benign exam I think she is having a flare of her ulcerative colitis. The radiologist recommends a consideration of infectious versus ischemic etiologies or inflammatory etiologies. She certainly does not have the exam or pain out of proportion to suggest an ischemic etiology. Departure - Departure Disposition: Home, Self Care Clinical Impression: Abdominal pain Condition: Good Record reviewed to determine appropriate education?: Yes Instructions: ED Colitis Ulcerative Prescriptions: Amox/Clav 875/125 [Augmentin] 1 each PO Q12H #20 tablet predniSONE [Deltasone] 20 mg PO [id number] #21 tab Ketorolac [Toradol] 10 mg PO Q6H PRN #12 tablet PRN Reason: pain Comments: I sent your prescription electronically to the [facility] in [place]. Today clinically and based on the CAT scan it looks like you are having a significant flare of your ulcerative colitis. You should follow-up with your GI doctor and return if pain becomes worse or you run a high fever. Forms: PCP List
[2024-04-14] MEDS: KETOROLAC 15 MG/ML VIAL IVP STA (11:53)
[2024-04-14] MEDS: SODIUM CHLORIDE 0.9% 1,000 ML IV STA (11:54)
[2024-04-14] MEDS ORDERED: iohexoL-300 100 ML VIAL ONE (12:04)
--- NOTE | 2024-04-14 12:55 | CT Report ---
PROCEDURE: Abdomen/Pelvis W INDICATIONS: iv only, low abd pain CONTRAST: Omni 300 100ml TECHNIQUE: After the administration of intravenous contrast, a CT scan of the abdomen and pelvis was performed. Images were recorded and evaluated at appropriate window settings. Reformats: coronal and sagittal. F or radiation dose reduction, the following was used: automated exposure control, adjustment of mA and /or kV according to patient size. COMPARISON: . FINDINGS: Image quality: Diagnostic. Lower chest: Unremarkable. Liver: No solid mass. Gallbladder: No radiopaque stones or wall thickening. Biliary tree: No intrahepatic or extrahepatic dilation, accounting for age. Spleen: No splenomegaly. Pancreas: No pancreatic ductal dilation. Adrenals: No adrenal nodule. Kidneys and ureters: No hydronephrosis. No renal cystic lesion which requires follow up. No solid mas s. Stomach, bowel and peritoneum: There is extensive edematous change and thickening of the wall of the cecum and ascending colon with the process extending to involve the proximal transverse colon. Thumbp rinting is present. It is noted that a similar process was present previously, to a lesser extent. Re mote partial distal colectomy. No pathologic free fluid. Lymph nodes: No central or retroperitoneal adenopathy. Vessels: No infrarenal aortic aneurysm. Patent portal vein. PELVIS Reproductive organs: Uterus is surgically absent.. Bladder: No abnormal wall thickening, accounting for underdistention. Pelvic lymph nodes: No pelvic adenopathy by size criteria. Bones: No aggressive osseous abnormality. Other: No significant ventral or inguinal hernia. IMPRESSION: 1. Impressive changes of colitis involving the cecum, ascending colon, and proximal transverse colon. Consider infectious versus inflammatory versus ischemic etiology. Reviewed by: Sonu Gomes MD on 04/14/2024 12:54 PM PDT Approved by: Sonu Gomes MD on 04/14/2024 12:54 PM PDT Station ID: [id number]
[2024-04-14] MEDS: iohexoL-300 100 ML VIAL IVP ONE (13:06)
[2024-04-14 13:32] VITALS: BP 127/62; O2SAT 99
== END 2024-04-14 13:24 | disposition home or self-care (01) ==
LOC: ED 09:50
DX: R10.30 Lower abdominal pain, unspecified (principal)
CPT/HCPCS: 36415; 74177; 80053; 81003; 83690; 85025; 96361; 96374; 99284; Q9967; 81001; 87086

== ENCOUNTER 2024-06-05 12:35 | Outpatient (CLI) | payer MEDICARE, BC ==
--- NOTE | 2024-06-05 13:41 | XRAY Report ---
PROCEDURE: Tib/Fib RT INDICATIONS: CELLULITIS L LOWER EXT TECHNIQUE: 2 views of the tibia and fibula were acquired. COMPARISON: 02/19/2019. FINDINGS: Bones: No fractures or dislocations. There is prior subtalar fusion with [address] No evidence of gross hardware loosening or failure. Partial bony union at subtalar joint is se en. Severe tibiotalar joint osteoarthritic changes are seen. No bony erosive changes. No suspicious b charbel lesions. Soft tissues: No suspicious soft tissue calcifications or masses. IMPRESSION: No acute lower leg fracture or dislocation. 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 No echographic evidence of osteomyelitis. Reviewed by: Jim Holguin MD on 06/05/2024 1:39 PM PDT Approved by: Jim Holguin MD on 06/05/2024 1:39 PM PDT Station ID: [id number]
== END 2024-06-05 12:36 | disposition home or self-care (01) ==
LOC: DI.S 12:35
DX: L03.116 Cellulitis of left lower limb (principal); M19.071 Primary osteoarthritis, right ankle and foot; Z96.89 Presence of other specified functional implants

== ENCOUNTER 2024-06-10 18:07 | Outpatient (CLI) | payer MEDICARE, BC ==
--- NOTE | 2024-06-16 09:39 | Ultrasound Report ---
PROCEDURE: Arterial Duplex Lwr Ext RT INDICATIONS: OPEN WOUND TECHNIQUE: Color and pulse Doppler interrogation was performed of the right lower extremity arterial system, wit h image documentation. COMPARISON: None available at time of dictation FINDINGS: Common femoral artery: 80 cm/sec, Deep femoral artery: 59 cm/sec, Proximal superficial femoral artery: 76 cm/sec, . Mid superficial femoral artery: 74 cm/sec, Distal superficial femoral artery: 57 cm/sec, Popliteal artery: 80 cm/sec, Posterior tibial artery: 53 cm/sec, Anterior tibial artery/dorsalis pedis: 56/50 cm/sec, Triphasic waveforms are seen throughout. Fajardo-scale imaging description: No significant atherosclerotic plaque. IMPRESSION: Patent lower extremity vasculature without hemodynamically significant stenosis. Reviewed by: Eliseo Morris MD on 06/16/2024 9:38 AM PDT Approved by: Eliseo Morris MD on 06/16/2024 9:38 AM PDT Station ID: [id number]
--- NOTE | 2024-06-16 09:40 | Ultrasound Report ---
PROCEDURE: Duplex Ext Veins Right INDICATIONS: OPEN WOUND TECHNIQUE: Real-time imaging, as well as color and pulse Doppler interrogation, were performed of the lower extr emity deep veins from the inguinal ligament to the popliteal fossa. Attempted visualization of the ca lf veins was performed. COMPARISON: None. FINDINGS: The deep veins are normally compressible, and free of intraluminal thrombus. Color and pu lse Doppler demonstrate normal phasic intraluminal flow. There is normal augmentation response to di stal compression maneuver. Note is made of a 1.3 cm Urena cyst. IMPRESSION: No deep venous thrombosis of the visualized right lower extremity. Reviewed by: Eliseo Morris MD on 06/16/2024 9:39 AM PDT Approved by: Eliseo Morris MD on 06/16/2024 9:39 AM PDT Station ID: [id number]
== END 2024-06-10 18:08 | disposition home or self-care (01) ==
LOC: DI 18:07
PROVIDERS: ATTEND Registered Nurse
DX: S81.801D Unspecified open wound, right lower leg, subsequent encounter (principal)

== ENCOUNTER 2025-08-26 15:53 | Observation (INO) ==
--- NOTE | 2025-08-26 16:37 | ED Physician Documentation ---
History of Present Illness Stated complaint Stated Complaint: ABD PX Chief complaint Chief Complaint: Abd Pain History obtained from History obtained from: Patient History of Present Illness Pain level max: 7 Pain level now: 5 Additonal information Additional information: Patient is a 75-year-old female who presents to the emergency department with abdominal pain ongoing for the past several days. Mostly in the epigastric and right upper quadrant area. History of ulcerative colitis. She is usually maintained on Lialda but does have flares about once a year. She states usually she has diarrhea and sometimes blood in the stool with this. She has not had any diarrhea at this time. Has not had any fevers at home but states that her or breathing states that her body temperature has been 2 degrees higher than usual and that her heart rate has been higher than usual for the past several days. Nothing really makes the pain better or worse. She has had a bowel resection in the past. She still has her appendix and gallbladder. Meds/Allgy Home Medications Ambulatory Orders Medication Instructions Recorded Confirmed clonazepam 0.25 mg disintegrating 0.25 mg PO DAILY 09/1808/26/25 tablet estradiol 0.05 mg/24 hr semiweekly 1 ea transdermal DA ANSELMO 02/13/14 08/26/25 transdermal patch (Jacklyn) mesalamine 1.2 gram tablet,delayed 4.8 g PO QDAY 05/0208/26/25 release (Lialda) Allergies Allergies Allergy/AdvReac Type Severity Reaction Status Date / Time sumatriptan (From Imitrex) Allergy Unknown Anaphylaxis Verified 08/26/25 16:04 sumatriptan succinate * Allergy Unknown Anaphylaxis Verified 08/26/25 16:04 (From Imitrex) [facility] Active Problems All Active Problems (Updated 08/26/25 @ 18:11 by Simran Zaragoza, TOWN CLERK, MSN) Urinary retention (Acute) Colitis (Acute) Change in bowel habits (Acute) Epigastric pain (Acute) Right upper quadrant abdominal pain (Acute) Acute cholecystitis (Acute) Arrhythmia (Acute) Dog bite (Acute) Social History Social History Do you vape?: No Do you feel safe in your home environment?: Yes History of physical, verbal, emotional, or financial abuse?: No Are you sexually active?: No POLST Patient has POLST: No Exam Exam Vital Signs: Vital Signs x48h Temp Pulse Resp BP Pulse Ox 10/22/25 18:46 85 18 157/60 H 97 08/26/25 16:04 69 18 160/75 H 96 08/26/25 15:59 36.6 C 76 18 150/63 H 100 Constitutional normal general appearance and no apparent distress HENMT oropharynx normal moist mucous membranes Eyes PERRL Neck/C-Spine visual inspection normal Respiratory breath sounds equal bilaterally, normal respiratory effort and clear to auscultation bilaterally Cardiovascular normal heart rate noted and regular rhythm noted Gastrointestinal abdomen normal to inspection, abdomen soft to palpation and nondistended Tender to palpation right upper quadrant, positive Lind sign. Otherwise benign abdominal exam Genitourinary no CVA tenderness Extremities no edema Neurology speech normal Psychiatry mental status grossly normal and oriented x3 Skin skin color normal Results Vitals Vitals: Vital Signs - 24 hr 08/26/25 15:59 08/26/25 16:04 08/26/25 18:46 Temperature 36.6 C Temperature Source Temporal Artery Scan Pulse Rate 76 69 85 Respiratory Rate 18 18 18 Blood Pressure 150/63 H 160/75 H 157/60 H O2 Saturation 100 96 97 O2 Source Room air Room air Room air Pain Intensity 9 4 5 Oxygen O2 Source Room air Labs Labs: Laboratory Tests 08/26/25 08/26/25 16:58 16:59 WBC 8.2 RBC 3.97 L Hgb 12.1 Hct 37.5 MCV 94.5 MCH 30.5 MCHC 32.3 RDW 13.2 Plt Count 236 MPV 9.5 Neut # (Auto) 5.2 Lymph # (Auto) 2.1 [place] # (Auto) 0.8 Eos # (Auto) 0.0 Baso # (Auto) 0.1 Absolute Nucleated RBC 0.00 Nucleated RBC % 0.0 Sodium 129 L Potassium 3.9 Chloride 96 L Carbon Dioxide 27 Anion Gap 6.0 BUN 10 Creatinine 0.6 Estimated GFR (MDRD) 97 Glucose 95 Calcium 8.9 Total Bilirubin 0.7 AST 27 ALT 22 Alkaline Phosphatase 53 Total Protein 7.9 Albumin 4.0 Globulin 3.9 Albumin/Globulin Ratio 1.0 Lipase 28 Urine Color YELLOW Urine Clarity CLEAR Urine pH 6.0 Ur Specific [place] 1.020 Urine Protein NEGATIVE Urine Glucose (UA) NEGATIVE Urine Ketones 40 H Urine Occult Blood NEGATIVE Urine Nitrite NEGATIVE Urine Bilirubin NEGATIVE Urine Urobilinogen 0.2 (NORMAL) Ur Leukocyte Esterase NEGATIVE Ur Microscopic Review NOT INDICATED Urine Culture Comments NOT INDICATED Rads (name of study) Right upper quadrant ultrasound: Relevant Findings:: Final report received PD Medical Decision Making ED course Complexity details: reviewed results, re-evaluated patient, considered differential and d/w patient ED course: 75-year-old female with acute cholecystitis on ultrasound. Gallbladder wall is 6.3 mm with a positive sonographic Lind sign. Her common bile duct is dilated up to 12 mm but her liver tests and bilirubin are normal. The intrahepatic bile ducts are nondilated. The extrahepatic bile duct tapers from 12 mm down to 9 mm. She was started on Zosyn. IV fluids given. Discussed with Dr. Tamayo, general surgery on-call who will come and evaluate the patient. Dr. Tamayo evaluated the patient will take to the operating room for cholecystectomy. Discharge Plan Discharge Patient Disposition: ED Transfer to [facility] Condition: Stable Clinical Impression: Acute cholecystitis Prescriptions: No Action estradiol [Jacklyn] 1 EACH patch semiweekly 1 ea transdermal DAILY clonazepam 0.25 MG tablet,disintegrating 0.25 mg PO DAILY mesalamine [Lialda] 1.2 gram tablet,delayed release (DR/EC) 4.8 g PO QDAY Print Language: Bulgarian Stand Alone Forms: PCP List
--- OUTSIDE RECORDS SUMMARY | 2025-08-26 16:38 | EXTERNAL MEDICAL SUMMARY RPT | Continuity of Care Document ---
Author Organization [facility] Address [address] [place] [id number] Phone Problems date description facility 2025-08-26 13:43 Dysuria [facility] 2025-08-26 13:45 Dysuria [facility] 2025-08-26 16:04 Cardiac arrhythmia, unspecified [facility] 2025-08-26 16:04 Dysuria [facility] 2025-08-26 16:05 Cardiac arrhythmia, unspecified [facility] 2025-08-26 16:05 Dysuria [facility] Social History date description facility
--- NOTE | 2025-08-26 17:02 | Ultrasound Report ---
PROCEDURE: US Abdomen Limited INDICATIONS: RUQ pain TECHNIQUE: Real-time focused scanning was performed of the abdomen, with image documentation. COMPARISONS: None. FINDINGS: Liver: Liver is normal in size and homogeneous in echotexture. Gallbladder: Layering sludge, gallbladder wall thickening measuring 4 mm. Biliary ducts: Intrahepatic bile ducts are non-dilated. Extrahepatic bile duct caliber measures 12 mm at the mid common bile duct, and 9 mm at the distal common bile duct . Normal is 6-7 mm or less in diameter, or 10 mm or less post- cholecystectomy. Pancreas: Visualized portions of the pancreas are sonographically normal. Right kidney: Normal in size and echotexture. Right kidney measures 10.5 cm long. No hydronephrosis or nephrolithiasis. No solid masses. No complex renal cystic lesions which require follow-up. IVC: Intrahepatic inferior vena cava is patent. Miscellaneous: No free abdominal fluid. IMPRESSION: 1. Biliary sludge with gallbladder wall thickening, concerning for acute cholecystitis. 2. Dilated common bile duct measuring up to 12 mm. Recommend correlation with LFTs and consider MRCP versus intraoperative cholangiogram if patient is determined to be a surgical candidate before MRI can be completed. Reviewed by: Velasquez De La Cruz MD on 08/26/2025 4:59 PM PDT Approved by: Velasquez De La Cruz MD on 08/26/2025 4:59 PM PDT Station ID: [id number]
[2025-08-26 17:06] LABS: HCT - HEMATOCRIT 37.5 % (37.0-47.0); HGB - HEMOGLOBIN 12.1 g/dL (12.0-16.0); MEAN PLATELET VOLUME 9.5 fL (7.9-10.8); NRBC ABSOLUTE COUNT (AUTO) 0.00 x10^3/uL; NUCLEATED RED BLOOD CELLS AUTO 0.0 /100WBC; PLT - PLATELET COUNT 236 10^3/uL (130-450); RED CELL DISTRIBUTION WIDTH 13.2 % (12.0-15.0)
[2025-08-26 17:23] LABS: ALT ALANINE AMINOTRANSFERASE 22.0 IU/L (10-60); AST ASPARTATE AMINOTRANSFERASE 27.0 IU/L (10-42); BUN - BLOOD UREA NITROGEN 10.0 mg/dL (6-20); CARBON DIOXIDE - CO2 27.0 mmol/L (21-32); CREATININE 0.6 mg/dL (0.6-1.3); GFR - MDRD 97.0 (>89)
[2025-08-26 17:35] LABS: GLUCOSE, URINE (UA) NEGATIVE (NEGATIVE); KETONES,URINE (UA) 40 mg/dL (NEGATIVE); OCCULT BLOOD,URINE NEGATIVE (NEGATIVE)
[2025-08-26] MEDS: PIPERACILLIN/TAZOBACTAM 3.375 GM in SODIUM CHLORIDE 0.9% MINIBAG 100 ML IV STA (17:37)
[2025-08-26] MEDS: SODIUM CHLORIDE 0.9% 1,000 ML IV STA (17:41)
[2025-08-26] MEDS ORDERED: PROPOFOL 200 MG/20 ML VIAL IVP ONE (18:35)
[2025-08-26] MEDS ORDERED: ROCURONIUM 50 MG/5 ML VIAL ONE (18:35)
[2025-08-26] MEDS ORDERED: BUPIVACAINE 0.25% PF 30 ML VIAL ONE (18:36)
[2025-08-26] MEDS ORDERED: fentaNYL 100 MCG/2 ML VIAL ONE ×3 (18:37→22:10)
[2025-08-26] MEDS ORDERED: MIDAZOLAM 2 MG/2 ML VIAL ONE (18:37)
[2025-08-26] MEDS ORDERED: LIDOCAINE-PF 2% 10 ML AMP SUBQ ONE (18:37)
--- NOTE | 2025-08-26 18:48 | ANESTHESIA PROCEDURE NOTE ---
Pre-Anesthesia VS, & Labs Diagnosis Surgical Diagnosis:: cholecystitis Procedure Procedure: laparoscopic cholecystectomy with cholangiogram Vitals Vital Signs: Temp Pulse Resp BP Pulse Ox 36.6 C 85 18 157/60 H 97 08/26/25 15:59 08/26/25 18:46 08/26/25 18:46 08/26/25 18:46 08/26/25 18:46 NPO NPO: >8 hours Is Patient ?: No Lab Results Current Lab Results: Laboratory Tests 08/26/25 16:58: WBC 8.2, RBC 3.97 L, Hgb 12.1, Hct 37.5, MCV 94.5, MCH 30.5, MCHC 32.3, RDW 13.2, Plt Count 236, MPV 9.5, Neut # (Auto) 5.2, Lymph # (Auto) 2.1, [place] # (Auto) 0.8, Eos # (Auto) 0.0, Baso # (Auto) 0.1, Absolute Nucleated RBC 0.00, Nucleated RBC % 0.0, Sodium 129 L, Potassium 3.9, Chloride 96 L, Carbon Dioxide 27, Anion Gap 6.0, BUN 10, Creatinine 0.6, Estimated GFR (MDRD) 97, Glucose 95, Calcium 8.9, Total Bilirubin 0.7, AST 27, ALT 22, Alkaline Phosphatase 53, Total Protein 7.9, Albumin 4.0, Globulin 3.9, Albumin/Globulin Ratio 1.0, Lipase 28 08/26/25 16:58 08/26/25 16:58 Meds/Allgy Home Medications Ambulatory Orders Medication Instructions Recorded Confirmed clonazepam 0.25 mg disintegrating 0.25 mg PO DAILY 09/1808/26/25 tablet estradiol 0.05 mg/24 hr semiweekly 1 ea transdermal DA ANSELMO 02/13/14 08/26/25 transdermal patch (Jacklyn) mesalamine 1.2 gram tablet,delayed 4.8 g PO QDAY 05/0208/26/25 release (Lialda) Allergies Allergies Allergy/AdvReac Type Severity Reaction Status Date / Time sumatriptan (From Imitrex) Allergy Unknown Anaphylaxis Verified 08/26/25 16:04 sumatriptan succinate * Allergy Unknown Anaphylaxis Verified 08/26/25 16:04 (From Imitrex) PFSH Active Problems All Active Problems (Updated 08/26/25 @ 18:11 by Simran Zaragoza, BRAZER HELPER INDUCTION, MSN) Urinary retention (Acute) Colitis (Acute) Change in bowel habits (Acute) Epigastric pain (Acute) Right upper quadrant abdominal pain (Acute) Acute cholecystitis (Acute) Arrhythmia (Acute) Dog bite (Acute) Social History Social History Do you vape?: No Do you feel safe in your home environment?: Yes History of physical, verbal, emotional, or financial abuse?: No Are you sexually active?: No POLST Patient has POLST: No Anesthesia Exam (Expanded) Exam General: Alert, Oriented x3, Cooperative and Mild distress Dental: WNL Neck Mobility: Normal Mallampati classification: I Thyromental Distance: greater than 6 cm Respiratory: Lungs clear Cardiovascular: Regular rate Exam Exam Vital Signs: Vital Signs x48h Temp Pulse Resp BP Pulse Ox 08/26/25 18:46 85 18 157/60 H 97 08/26/25 16:04 69 18 160/75 H 96 08/26/25 15:59 36.6 C 76 18 150/63 H 100 Plan Plan Anesthesia Type: General Consent for Procedure(s) Verified and Reviewed: Yes Code Status: Attempt Resuscitation ASA Classification ASA classification: 2-Mild systemic disease Is this case an emergency?: Yes
[2025-08-26] MEDS ORDERED: ONDANSETRON 4 MG/2 ML VIAL IVP PRN (18:49)
[2025-08-26] MEDS ORDERED: ATROPINE ABBOJECT 1 MG/10 ML SYRINGE IVP PRN (18:49)
[2025-08-26] MEDS ORDERED: METOCLOPRAMIDE 10 MG/2 ML VIAL IVP PRN (18:49)
[2025-08-26] MEDS ORDERED: ePHEDrine 50 MG/ML VIAL IVP PRN (18:49)
[2025-08-26] MEDS ORDERED: NALOXONE 0.4 MG/ML VIAL IVP PRN (18:49)
[2025-08-26] MEDS ORDERED: MORPHINE 2 MG/ML CARPUJECT IVP PRN (18:49)
--- NOTE | 2025-08-26 18:57 | CONSULTATION NOTE ---
Referring Provider Name of Referring Provider:: Dr. Mora Consult Date: 08/26/25 Chief Complaint Chief Complaint Chief Complaint: Abdominal pain History of Present Illness History Obtained From History obtained from: Patient History of Present Illness HPI Comment/Other: 75-year-old female w/ pmh of UC who presents to the emergency department with abdominal pain ongoing for the past several days, mostly in the epigastric and right upper quadrant area. She states usually she has diarrhea and sometimes blood in the stool with her UC flares, she is typically maintained on Mesalamine with a flare ~1 per year. She has not had any diarrhea at this time. Has not had any fevers at home but states that her body temperature has been 2 degrees higher than usual and that her heart rate has been higher than usual for the past several days. Nothing really makes the pain better or worse. She has had extensive surgeries in the past including ventral hernia repair x 2, partial colectomy, hysterectomy and small bowel surgery, all done minimally invasive. In the ED she underwent US demonstrating thickened gallbladder with CBD dilated to 12mm concerning for cholecystitis possible choledocholithiasis. [facility] Active Problems All Active Problems (Updated 08/26/25 @ 18:11 by Simran Zaragoza, ORDER CONTROL CLERK BLOOD BANK, MSN) Urinary retention (Acute) Colitis (Acute) Change in bowel habits (Acute) Epigastric pain (Acute) Right upper quadrant abdominal pain (Acute) Acute cholecystitis (Acute) Arrhythmia (Acute) Dog bite (Acute) Social History Social History Do you vape?: No Do you feel safe in your home environment?: Yes History of physical, verbal, emotional, or financial abuse?: No Are you sexually active?: No POLST Patient has POLST: No Meds/Allgy Home Medications Ambulatory Orders Medication Instructions Recorded Confirmed clonazepam 0.25 mg disintegrating 0.25 mg PO DAILY 09/1808/26/25 tablet estradiol 0.05 mg/24 hr semiweekly 1 ea transdermal DA ANSELMO 02/13/14 08/26/25 transdermal patch (Jacklyn) mesalamine 1.2 gram tablet,delayed 4.8 g PO QDAY 05/0208/26/25 release (Lialda) Allergies Allergies Allergy/AdvReac Type Severity Reaction Status Date / Time sumatriptan (From Imitrex) Allergy Unknown Anaphylaxis Verified 08/26/25 16:04 sumatriptan succinate * Allergy Unknown Anaphylaxis Verified 08/26/25 16:04 (From Imitrex) Results Lab Results Lab results reviewed: Yes 08/26/25 16:58 08/26/25 16:58 Other Lab Results: Lab Results x24hrs 08/26/25 08/26/25 Range/Units 16:59 16:58 WBC 8.2 (4.8-10.8) x10^3/uL RBC 3.97 L (4.20-5.40) 10^6/uL Hgb 12.1 (12.0-16.0) g/dL Hct 37.5 (37.0-47.0) % MCV 94.5 (81.0-99.0) fL MCH 30.5 (27.0-31.0) pg MCHC 32.3 (32.0-36.0) g/dL RDW 13.2 (12.0-15.0) % Plt Count 236 (130-450) 10^3/uL MPV 9.5 (7.9-10.8) fL Neut # (Auto) 5.2 (1.5-6.6) 10^3/uL Lymph # (Auto) 2.1 (1.5-3.5) 10^3/uL [place] # (Auto) 0.8 (0.0-1.0) 10^3/uL Eos # (Auto) 0.0 (0.0-0.7) 10^3/uL Baso # (Auto) 0.1 (0.0-0.1) 10^3/uL Absolute Nucleated RBC 0.00 x10^3/uL Nucleated RBC % 0.0 /100WBC Sodium 129 L (135-145) mmol/L Potassium 3.9 (3.5-4.5) mmol/L Chloride 96 L (101-111) mmol/L Carbon Dioxide 27 (21-32) mmol/L Anion Gap 6.0 (6-13) BUN 10 (6-20) mg/dL Creatinine 0.6 (0.6-1.3) mg/dL Estimated GFR (MDRD) 97 (>89) Glucose 95 (74-104) mg/dL Calcium 8.9 (8.5-10.3) mg/dL Total Bilirubin 0.7 (0.2-1.0) mg/dL AST 27 (10-42) IU/L ALT 22 (10-60) IU/L Alkaline Phosphatase 53 (42-121) IU/L Total Protein 7.9 (6.4-8.9) g/dL Albumin 4.0 (3.2-5.5) g/dL Globulin 3.9 (2.1-4.2) g/dL Albumin/Globulin Ratio 1.0 (1.0-2.2) Lipase 28 (11-82) U/L Urine Color YELLOW Urine Clarity CLEAR (CLEAR) Urine pH 6.0 (5.0-7.5) PH Ur Specific [place] 1.020 (1.002-1.030) Urine Protein NEGATIVE (NEGATIVE) mg/dL Urine Glucose (UA) NEGATIVE (NEGATIVE) mg/dL Urine Ketones 40 H (NEGATIVE) mg/dL Urine Occult Blood NEGATIVE (NEGATIVE) Urine Nitrite NEGATIVE (NEGATIVE) Urine Bilirubin NEGATIVE (NEGATIVE) Urine Urobilinogen 0.2 (NORMAL) (NORMAL) E.U./dL Ur Leukocyte Esterase NEGATIVE (NEGATIVE) Ur Microscopic Review NOT INDICATED Urine Culture Comments NOT INDICATED Diagnostic Imaging Results Diagnostic Imaging Results: positive Final report reviewed Review of Systems Status of ROS: 10 or more systems reviewed and unremarkable except as noted in history and below Exam Exam Vital Signs: Vital Signs x48h Temp Pulse Resp BP Pulse Ox 08/26/25 18:46 85 18 157/60 H 97 08/26/25 16:04 69 18 160/75 H 96 08/26/25 15:59 36.6 C 76 18 150/63 H 100 Constitutional normal general appearance and no apparent distress HENMT normocephalic and head/scalp atraumatic Eyes conjunctivae normal and no scleral icterus Neck/C-Spine visual inspection normal Respiratory normal respiratory effort Cardiovascular normal heart rate noted and regular rhythm noted Gastrointestinal tender to palpation (moderate) and (RUQ) Multiple laparoscopic/robotic surgical scars present on the abdomen, well healed. Extremities normal to inspection Psychiatry thought process normal and cooperative Skin skin color normal Conclusion/Plan Problem List (1) Acute cholecystitis: Plan: - NPO w/ IVF - Admit to surgery - OR for lap sánchez possible IOC possible open - Pain and nausea control as needed - Encourage OOB/ambulation Discussed with the patient at the bedside, all questions were answered and she voiced understanding of the plan. She was then educated on the risks and benefits of undergoing surgery and subsequently consented to the operation. Lab Results Lab results reviewed: Yes 08/26/25 16:58 08/26/25 16:58 Diagnostic Imaging Results Diagnostic Imaging Results: positive Final report reviewed
[2025-08-26] MEDS ORDERED: ONDANSETRON 4 MG/2 ML VIAL ONE (19:42)
[2025-08-26] MEDS ORDERED: DEXAMETHASONE 4 MG/ML VIAL ONE (19:42)
[2025-08-26] MEDS ORDERED: ePHEDrine 50 MG/ML VIAL IVP ONE (19:55)
[2025-08-26] MEDS ORDERED: ACETAMINOPHEN 1,000 MG/100 ML 1,000 MG/100 ML BAG IV ONE (20:22)
[2025-08-26] MEDS ORDERED: SUGAMMADEX 200 MG/2 ML VIAL IVP ONE (21:16)
[2025-08-26] MEDS ORDERED: HYDROmorphone 1 MG/ML CARPUJECT ONE (21:27)
[2025-08-26] MEDS: HYDROmorphone 0.5 MG/0.5 ML SYRINGE IVP PRN (21:29)
[2025-08-26] MEDS: fentaNYL 100 MCG/2 ML VIAL IVP PRN (21:38)
--- NOTE | 2025-08-26 21:38 | OPERATIVE REPORT ---
Operative Report General Procedure Data: Operation Date: 08/26/25 19:00 Proposed Procedures p Laparoscopic Cholecystectomy(Not Applicable) - Miah Tamayo MD Actual Procedures p Laparoscopic Cholecystectomy with intraoperative cholangiogram(Not Applicable) - Miah Tamayo MD Pre-Op Diagnosis: Cholecystitis and common bile duct dilation Anesthesia Type General Case Staff Anesthesia Provider: Clarita Walton Case Times Procedure Start: 08/26/25 19:32 Procedure End: 08/26/25 21:16 Time out: 08/26/25 19:31 Pre-Op Diagnosis: Acute cholecystitis, common bile duct dilation Post Op Diagnosis: Acute cholecystitis, common bile duct dilation Procedure Note Intake, IV Amount (ml): 1,000 Estimated Blood Loss (ml): 10 Pathology: Gallbladder Indications: Acute cholecystitis Findings: Distended and inflamed gallbladder with adhesions to the omentum and duodenum, prior to any clip placement the triangle of calot was adequately identified, cholangiogram demonstrated dilated biliary tree but without any filling defects or strictures, free fllow of contrast into the duodenum appreciated Complications: None Other Other Information/Narrative: Patient was first correctly identified in the ED and then wheeled to the operating room via stretcher. They were then made to lay on the operating room table in a supine fashion with left arm abducted to 90 degrees and the right arm tucked. She then underwent general anesthesia induction with endotracheal intubation which she tolerated well. SCD's were applied to the bilateral lower extremities, she had previously been receiving antibiotics for her cholecystitis. The abdomen was then prepped and draped in the typical surgical sterile fashion and a WHO timeout was called to which all were in agreement. A 5mm incision was made in the left subcostal region at [place] and abdominal access was gained via a 5mm Trocar using direct visualization with Optiview technique. The abdomen was then inspected and there was no injury from the initial trocar placement. Adhesions were appreciated from the omentum to the umbilical area from her previous surgeries. An additional 5mm trocar was then placed in the right mid abdomen laterally under direct visualization and a Harmonic scalpel was then used to take down the adhesions. A 12mm incision was then made at the umbilicus through a prior surgical incision and then a 12mm trocar was placed under direct visualization. An additional 5mm trocar was then placed in the left mid abdomen between the other two trocars under direct visualization. The gallbladder was then evaluated and found to be distended and inflamed with adhesions to the omentum and the duodenum. The fundus was then grasped and retracted cephalad and the adhesions were taken down carefully using Harmonic scalpel and blunt dissection while taking care to avoid any injury to the duodenum or gallbladder. Once the adhesions were taken down the infundibulum was grasped and retracted inferolaterally as the peritoneum was taken down from the gallbladder using the harmonic scalpel. The cystic duct and cystic artery were then both isolated and a window under the lower third of the gallbladder to the liver with only the cystic artery and cystic duct traveling into the gallbladdder was achieved signifying the triangle of safety. The cystic artery was then clipped once distally and twice proximally. The cystic duct was then clipped once distally and radiology was alerted that we were ready for our intraoperative cholangiogram. A ductotomy was then made in the cystic duct just below the clip and then a 14G angiocath was placed percutaneously in the right subcostal region. The Pollack catheter was then placed through this angiocath into the cystic duct where it was secured with a clip. The other instruments were then removed and a cholangiogram was done demonstrating dilated common bile duct with mildly dilated left and right main hepatic ducts and free flow of contrast through the papilla into the duodenum. There were no signs of filling defect, stricture or extravasation. The clip on the catheter was removed followed by removal of the Pollack catheter. The cystic duct was then clipped twice proximally below the cystic ductotomy. The cystic duct was then transected at the ductotomy site using laparoscopic scissors. The cystic artery was then transected using the Harmonic scalpel vessel sealing mode. The gallbladder was then completely removed from the cystic plate. Prior to removal the cystic plate was evaluated and there was a small amount of bleeding. Surgicel powder was placed to the cystic plate and hemostasis was achieved. The gallbladder was then completely removed from the cystic plate and placed in an endocatch bag. The gallbladder in the bag was then removed from the abdomen under direct visualization. The umbilical trocar site was then closed using a #1 PDS suture with endoclose device. The abdomen was then re-inspected and the cystic plate was hemostatic. The abdomen was then desufflated and the trocars removed. The skin incisions were then closed using a 4-0 Monocryl suture in a simple running fashion. All trocar sites were injected with 0.25% Marcaine. Dermabond was used to cover the incision. The sponge, needle and instrument counts were then deemed correct and the patient was awoken from general anesthesia and wheeled to the operating room in good condition.
[2025-08-26] MEDS ORDERED: HYDROmorphone 0.5 MG/0.5 ML SYRINGE ONE (21:52)
--- NOTE | 2025-08-26 22:46 | ANESTHESIA POST OP EVALUATION ---
Anesthesia Post Eval Post Anesthesia Eval Vitals: Last Vital Signs Temp 36.2 C L 08/26/25 22:10 Pulse 87 08/26/25 22:25 Resp 18 08/26/25 22:25 BP 131/75 H 08/26/25 22:25 Pulse Ox 99 08/26/25 22:25 O2 Flow Rate 3 08/26/25 22:25 CV Function Including HR & BP: Stable Pain Control: Satisfactory Nausea & Vomiting: Negative Mental Status: Baseline Respiratory Status: Airway Patent Anesthesia Complications: None
[2025-08-26] MEDS: LACTATED RINGERS 1,000 ML IV SCH ×2 (22:55→23:28)
[2025-08-26] MEDS: MORPHINE 2 MG/ML CARPUJECT IVP PRN (22:55)
[2025-08-26] MEDS: HEPARIN 5,000 UNIT/ML VIAL SUBQ SCH (23:29)
[2025-08-26] MEDS: ACETAMINOPHEN 325 MG TABLET PO PRN (23:38)
[2025-08-26] MEDS: oxyCODONE 5 MG TABLET PO PRN (23:38)
[2025-08-27] MEDS: SODIUM CHLORIDE FLUSH 0.9% 10 ML SYRINGE IVP SCH (00:31)
[2025-08-27] MEDS: SODIUM CHLORIDE FLUSH 0.9% 10 ML SYRINGE IVP PRN (03:08)
[2025-08-27] MEDS: HEPARIN 5,000 UNIT/ML VIAL SUBQ SCH (06:08)
--- NOTE | 2025-08-27 10:48 | XRAY Report ---
PROCEDURE: [place] OR Cholangiogram INDICATIONS: IOC TECHNIQUE: 1 Intraoperative view of the abdomen were acquired. COMPARISON: None. FINDINGS/IMPRESSION: Single intraoperative view of the abdomen. Please refer to surgical report. Reviewed by: Dionte Walker MD on 08/27/2025 10:44 AM PDT Approved by: Dionte Walker MD on 08/27/2025 10:44 AM PDT Station ID: [id number]
--- NOTE | 2025-08-27 12:15 | PHARMACY PROGRESS NOTE ---
Best Possible Medication History Admit Date and Time: Home Medications Medication Instructions Recorded Confirmed Type mesalamine 1.2 gram tablet,delayed 4.8 g PO DAILY /06/2908/27/25 History release (Lialda) clonazepam 0.5 mg tablet (Klonopin) 0.5 mg PO DAILY DE N migraine 08/27/25 08/27/25 History headache cyclosporine 0.05 % eye drops in a 1 drp ophthalmic (e ye) Q12H 08/27/25 08/27/25 History dropperette (Restasis) erythromycin 5 mg/gram (0.5 %) eye 1 applic ophthalmic (eye) TID 08/27/25 08/27/25 History ointment estradiol 0.05 mg/24 hr semiweekly 1 patch transdermal .BIW 08/27/25 08/27/25 History transdermal patch ([place]) Processed by: Pharmacy Medications reviewed in ED?: No Medication History completed: Yes Patient Interview: Pt interview ONLY source BPM Statement: As the person ultimately responsible for medication therapy, providers are able to order a medication from an existing home medication list in [facility] via the "Reconcile Routine" prior to Confirmation of that medication by intelligence support officer. Such practice is discouraged except when the physician, in their clinical judgment, deems that a medical need exists for a medication without regard to previous use.
--- NOTE | 2025-08-27 15:03 | PROVIDER PROGRESS NOTE ---
Subjective General Procedure Date: 08/26/25 Post Op Days: 1 Procedure Performed: Laparoscopic cholecystectomy with intraoperative cholangiogram Other Other Information/Narrative: Doing well this morning, still having significant abdominal pain from her incisions but improving. Denies any current nausea, vomiting, chest pain or SOB. She has tolerated liquids today, passing flatus and making adequate UOP. Wound Assessment Wound/Incisions: positive Healing well Review of Systems Status of ROS: 10 or more systems reviewed and unremarkable except as noted in history and below Exam Exam Vital Signs: Vital Signs x48h Temp Pulse Resp BP Pulse Ox O2 Flow Rate 08/27/25 12:00 37 C 84 18 111/56 L 98 08/27/25 09:28 2 08/27/25 07:31 36.6 C 74 16 114/62 99 Constitutional normal general appearance and no apparent distress HENMT normocephalic and head/scalp atraumatic Eyes conjunctivae normal and no scleral icterus Neck/C-Spine visual inspection normal Respiratory normal respiratory effort Cardiovascular normal heart rate noted and regular rhythm noted Gastrointestinal tender to palpation (moderate) and (periumbilical) Incisions clean, dry and intact with dermabond in place. Extremities normal to inspection Psychiatry thought process normal and cooperative Skin skin color normal Impression/Plan Problem List (1) Acute cholecystitis: Plan: POD 1 s/p laparoscopic cholecystectomy with intraoperative cholangiogram - Low fat diet as tolerated - HL IVF - Switch to PO dilaudid for pain control - Pain and nausea control as needed - Encourage OOB/ambulation Discussed with the patient at the bedside, all questions were answered and she voiced understanding of the plan.
[2025-08-27] MEDS: ONDANSETRON 4 MG/2 ML VIAL IVP PRN (15:55)
--- NOTE | 2025-08-28 12:20 | PROVIDER PROGRESS NOTE ---
Subjective General Procedure Date: 08/26/25 Post Op Days: 2 Procedure Performed: Laparoscopic cholecystectomy with intraoperative cholangiogram Other Other Information/Narrative: Doing well today, states she feels that she is now healing, her pain is still present but getting better. The pain medications are now controlling it. She is having flatus and up OOB/ambulating with assistance. She denies any nausea, vom iting, chest pain, SOB, fevers or chills. Wound Assessment Wound/Incisions: positive Healing well Review of Systems Status of ROS: 10 or more systems reviewed and unremarkable except as noted in history and below Exam Exam Vital Signs: Vital Signs x48h Temp Pulse Resp BP Pulse Ox 08/28/25 08:12 37.1 C 75 22 125/59 L 95 Constitutional normal general appearance and no apparent distress HENMT normocephalic and head/scalp atraumatic Eyes conjunctivae normal and no scleral icterus Neck/C-Spine visual inspection normal Respiratory normal respiratory effort Cardiovascular normal heart rate noted and regular rhythm noted Gastrointestinal tender to palpation (moderate) and (periumbilical) Incisions clean, dry and intact with dermabond in place. Extremities normal to inspection Psychiatry thought process normal and cooperative Skin skin color normal Impression/Plan Problem List (1) Acute cholecystitis: Plan: POD 2 s/p laparoscopic cholecystectomy with intraoperative cholangiogram - Low fat diet as tolerated - HL IVF - Pain and nausea control as needed - Encourage OOB/ambulation, PT ordered - Dispo planning for tomorrow, patient not ready today stating that she has a big dog and lots of stairs that she doesnt feel safe with yet. Discussed with the patient at the bedside, all questions were answered and she voiced understanding of the plan.
[2025-08-28] MEDS ORDERED: SODIUM CHLORIDE FLUSH 0.9% 10 ML SYRINGE IVP PRN (12:44)
--- NOTE | 2025-08-28 14:14 | PT Plan of Care ---
PT Plan of Care Physical Therapy Plan of Care: Diagnosis Diagnosis cholecystitis Diagnosis lap sánchez 08/26/25 Referring Provider Miah Tamayo Patient Status Same Day Surgery (SD) Chief Complaint Chief Complaint pain Onset of Chief Complaint s/p sx Balance/ Functional Results Sitting Balance Good Standing Balance Fair Assessment Assessment Pt is a 75yo F referred for PT eval d/t limited mobility s/p surgery. POD2. Pt reports living in multistory home with 14stairs to access bedroom . Pt reports concerns regarding 3 dogs at home, stairs and self-care. Lives with S.O. and states he can help her with ADLs and mobility as needed. Cleared for eval by . Upon PT eval, pt reports pain at rest and with movement but willing to participate. Log roll and STS with mod cueing and encouragement, CGA overall. Amb in room to bathroom with FWW and SBA. All toileting and hygiene Jose. Amb to b/s chair. Gait notable for antalgia and limited trunk extension d/t abd pain, but normal gait pattern otherwise. Pt taken to stair station, taught safe sequencing and completes 2x5 steps with HR use and step to pattern. Extensive time spent on home safety education and pt advised to use FWW until pain has reduced, shower chair for safety and have S.O. assist with higher level ADLs like dog care and mobility including stairs. Pt agrees but reports concerns about being able to care for herself at home. Despite pt's hesitancy , PT rec dc home with increased CG support, DME use as above, and follow up with OPPT if mobility limitations persist. PT Plan of Care Frequency Evaluation only, no further P.T. Discharge Recommendations Discharge Location Previous Living Situation Support/Services Needed With assist DC Equipment Recommended Front wheeled walker Other FWW for 1-2 weeks max, shower chair Transport Needs at Discharge Personal vehicle
[2025-08-28] MEDS: SODIUM CHLORIDE FLUSH 0.9% 10 ML SYRINGE IVP SCH (17:07)
--- NOTE | 2025-08-29 10:23 | Discharge Summary ---
"Discharge Summary Admit Date: 08/26/25 Discharge Date: 08/29/25 Discharging Provider: Dr. Miah Tamayo Code Status: Attempt Resuscitation DIAGNOSES Admission Diagnoses: Acute cholecystitis Discharge Diagnoses with Status of Each Condition: Acute cholecystitis - resolved HPI History of Present Illness: 75-year-old female w/ pmh of UC who presented to the emergency department on 08/26 with abdominal pain ongoing for the past several days, mostly in the epigastric and right upper quadrant area. She states usually she has diarrhea and sometimes blood in the stool with her UC flares, she is typically maintained on Mesalamine with a flare ~1 per year. She has not had any diarrhea at this time. Has not had any fevers at home but states that her body temperature has been 2 degrees higher than usual and that her heart rate has been higher than usual for the past several days. Nothing really makes the pain better or worse. She has had extensive surgeries in the past including ventral hernia repair x 2, partial colectomy, hysterectomy and small bowel surgery, all done minimally invasive. In the ED she underwent US demonstrating thickened gallbladder with CBD dilated to 12mm concerning for cholecystitis possible choledocholithiasis. CONSULTS | PROCEDURES Procedures: 08/26 Laparoscopic cholecystectomy with intraoperative cholangiogram HOSPITAL COURSE Hospital Course: Underwent surgery on 08/26 which went well and then was admitted afterwards for close monitoring and pain control. She did well over the next few days with progressive advancing of her diet and improving pain control moving from requiring IV medication to pain controlled on oral medication. She worked with PT and did walking and stairs and was deemed safe for discharge to her home with a walker which was provided. On 08/29 she was tolerating a diet, having bowel function, ambulating ad fabiana with her walker, making adequate urine and pain was controlled on oral medication so she was seemed stable for discharge. ALLERGIES Allergies Allergy/AdvReac Type Severity Reaction Status Date / Time sumatriptan (From Imitrex) Allergy Unknown Anaphylaxis Verified 08/26/25 16:04 sumatriptan succinate * Allergy Unknown Anaphylaxis Verified 08/26/25 16:04 (From Imitrex) MEDICATIONS Ambulatory Orders Medication Instructions Recorded Confirmed mesalamine 1.2 gram tablet,delayed 4.8 g PO DAILY 04/0608/27/25 release (Lialda) clonazepam 0.5 mg tablet (Klonopin) 0.5 mg PO DAILY DE N migraine 08/27/25 08/27/25 headache cyclosporine 0.05 % eye drops in a 1 drp ophthalmic (e ye) Q12H 08/27/25 08/27/25 dropperette (Restasis) erythromycin 5 mg/gram (0.5 %) eye 1 applic ophthalmic (eye) TID 08/27/25 08/27/25 ointment estradiol 0.05 mg/24 hr semiweekly 1 patch transdermal .BIW 08/27/25 08/27/25 transdermal patch (Alberta) hydromorphone 2 mg tablet 2 mg PO Q6H PRN pain #14 tab s 08/29/25 (Dilaudid) PHYSICAL EXAM AT DISCHARGE Vital Signs: Vital Signs x48h Temp Pulse Resp BP Pulse Ox 08/29/25 07:50 36.9 C 75 16 127/61 94 08/29/25 04:58 37.2 C 89 20 145/80 H 94 General Appearance: positive No acute distress and Alert Eyes Bilateral: positive Normal inspection ENT: positive No signs of dehydration Neck: positive Nml inspection Respiratory: positive No respiratory distress Cardiovascular: positive Regular rate & rhythm Abdomen: positive No distention and Tenderness Skin: positive Color nml Extremities: positive Non-tender Neurologic/Psychiatric: positive Oriented x3 and Mood/affect nml LABS 08/26/25 16:58 08/26/25 16:58 DIAGNOSTIC IMAGING Diagnostic Imaging Results: Final report reviewed SEPSIS Current Stage of Sepsis: Ruled out FOLLOW UP Follow Up: Follow up for post op appointment in 2 weeks from surgery. TIME SPENT Time Spent in Discharge (Minutes): 40 Discharge Plan Discharge Patient Disposition: 01 Home, Self Care Condition: Stable Medically Cleared Date:: 08/29/25 Prescriptions: New hydromorphone [Dilaudid] 2 mg tablet 2 mg PO Q6H PRN (Reason: pain) Qty: 14 0RF Continued erythromycin 5 mg/gram (0.5 %) ointment 1 applic ophthalmic (eye) TID Patient Comments: APPLY A SMALL AMOUNT TO INCISION THREE TIMES A DAY FOR TEN DAYS OR UNTIL HEALED estradiol [Alberta] 0.05 mg/24 hr patch semiweekly 1 patch transdermal .BIW clonazepam [Klonopin] 0.5 mg tablet 0.5 mg PO DAILY PRN (Reason: migraine headache) cyclosporine [Restasis] 0.05 % dropperette 1 drp ophthalmic (eye) Q12H mesalamine [Lialda] 1.2 gram tablet,delayed release (DR/EC) 4.8 g PO DAILY Activity Restrictions/Additional Instructions: DIET - You may resume your normal diet if there is no nausea or vomiting. You may want to avoid spicy, greasy, or heavy foods today to minimize gas. - If nausea or vomiting occurs, don't eat or drink anything for one hour. Then start drinking small amounts of clear liquids. Later, add crackers, gradually building up to your usual diet. ACTIVITY INSTRUCTIONS * You may shower * Ambulate daily * No lifting more than 15 lbs for 6 weeks * May climb stairs. DRESSING CARE * Leave Dermabond on skin until it comes off * May shower and wash with soap and water * Do not immerse incisions in water for 2 weeks. CARE INSTRUCTIONS * Ice to wound for 15min [3] times per day as needed for pain. * Use ice for [3] days. MEDICATIONS * Take acetaminophen every 6 hours as needed for pain, plus ibuprofen every 6 hours as needed for pain. May also take Dilaudid every 6 hours as needed for pain but only if necessary; may take all 3 together. ANESTHESIA PRECAUTIONS Anesthesia and medications given during surgery may remain in your body for days after surgery. This may slow reaction time and/or decrease coordination. FOR THE NEXT 24 HOURS: - Have a responsible person with you - Avoid any activity that requires you to be alert and coordinated - DO NOT DRIVE a motor vehicle for 24 hours or as long as you are taking opioid pain medication - Do not drink alcoholic beverages - Do not smoke unattended Patient Date Escort Date RN Date Diet: Regular Print Language: Bahraini Patient Instructions: Surg Dc, Cholecystectomy Dc Stand Alone Forms: PCP List Follow-up Care: Miah Tamayo MD [Provider Admit Priv/Credential, Surgery, General] - 2 Weeks Referral Note: Post op lap sánchez 08/26 Saniya Delgado MD [Primary Care Provider, Internal Medicine] Vitals documented within 30 minutes of discharge?: Yes"
[2025-08-29 14:09] VITALS: O2SAT 95
[2025-08-29 15:22] VITALS: BP 141/74; TEMP 97.9
== END 2025-08-29 15:00 | disposition home or self-care (01) ==
LOC: ED 15:53 → MS2 18:54 → SDS 18:54 → MS2 21:24
PROVIDERS: ADMIT Student in an Organized Health Care Education/Training Program; ATTEND Student in an Organized Health Care Education/Training Program
DX: K81.2 Acute cholecystitis with chronic cholecystitis